=== PATIENT | male | born 1980 | race Caucasian/White ===

== ENCOUNTER → 2018-04-02 09:58 | Outpatient (CLI) | payer SELFPAY ==
--- NOTE | 2018-04-02 10:08 | XR_ITS ---
XR chest 2V HISTORY: ITS.REASON: CHEST PAIN ORDERING PHYSICIAN: Ceci Pena PATIENT AGE: 37 years COMPARISON: None available FINDINGS: The cardiomediastinal silhouette and pulmonary vascularity are within normal limits. The lungs are clear without infiltrates, suspicious nodules, or pleural effusions. No acute bony abnormalities. There are small calcified hilar nodes bilaterally and there is a calcified granuloma right lower lobe IMPRESSION: Negative chest, no acute finding
== END ==
PROVIDERS: PCP Nurse Practitioner Family; Visit Provider Nurse Practitioner Family
DX: R07.9 Chest pain, unspecified (principal)
CPT/HCPCS: 71046